=== PATIENT | male | born 1955 | race Caucasian/White ===

== ENCOUNTER → 2016-12-27 | Outpatient (CLI) | payer OTHER ==
--- NOTE | 2016-12-27 13:11 | Diagnostic Imaging Report ---
EXAMINATION: PA and lateral views of the chest. INDICATION: Shortness of breath. FINDINGS: There is minimal atelectasis in the left lung base. Slight hyperinflation and flattening of the diaphragms is noted. The heart size is borderline enlarged. There is suggestion of aortopulmonary window calcified granulomas. Otherwise, the mediastinum and liz appear unremarkable. No effusions or pneumothorax. IMPRESSION: Mild pulmonary hyperinflation. Borderline cardiomegaly. Dictated by: Dictated on workstation # [id number]
== END ==
LOC: RT 11:32
PROVIDERS: ATTEND Internal Medicine Critical Care Medicine
DX: J44.9 Chronic obstructive pulmonary disease, unspecified (principal); J45.909 Unspecified asthma, uncomplicated; J18.9 Pneumonia, unspecified organism; R06.02 Shortness of breath; E66.9 Obesity, unspecified
CPT/HCPCS: 71020; 94060; 94726; 94729